=== PATIENT | male | born 1950 | race Caucasian/White ===

== ENCOUNTER 2023-12-09 10:10 | Emergency (ER) | payer MEDICARE, SELFPAY ==
[2023-12-09 10:29] VITALS: BP 127/100
--- NOTE | 2023-12-09 10:54 | ED.SKININJ ---
HPI-Injury
<Tristian Ellis PA-C - Last Filed: 12/09/23 12:47>
General
Chief Complaint: Skin Problem
Source: patient
Exam Limitations: none
Time Seen by Provider: 12/09/23 10:36
Travel History
Have you had any contact with someone who has COVID-19?: No
Do you have any symptoms of coronavirus? Fever > 100 degrees, chills, cough, shortness of breath, sore throat, loss of taste or smell, muscle aches, or headache?: No
History of Present Illness-Injury
Initial Injury comments:
73-year-old male with history of hyperlipidemia presents with over a months worth of an itchy rash of the arms trunk and legs. He was thought initially to have a dermatitis. He was started on triamcinolone cream by the workers compensation adjuster. Since then
the rash has changed. It is persistent. He now notes increased redness swelling and pain to the right forearm. No fever. He was seen by an chief hydroelectric station operator 3 days ago and was placed on mupirocin and Bactrim. He notes no relief with this. He now notes
lesions that are continuing to get worse. No new exposures otherwise. He has not slept anywhere different. No one around him has a rash similar to this
Past History
<Tristian Ellis PA-C - Last Filed: 12/09/23 12:47>
Past History
ED Past Medical History: Hypercholesterolemia
ED Past Surgical History: Appendectomy, Orthopedic (Carpal tunnel release) and Other (Deviated septum)
Social History
Tobacco: Non-smoker
Alcohol: Occasional
Personal:
Living: with family
Employment: Employed
Family History
Family History: Other (Mother with diverticulitis, father with coronary disease and stents and macular degeneration)
Phy Exam
<Tristian Ellis PA-C - Last Filed: 12/09/23 12:47>
Physical Exam
Physical Exam:
General: Well-appearing male no acute respiratory distress
HEENT: Normocephalic atraumatic neck is supple heart: Regular rate and rhythm no murmurs
Lungs: Clear no wheeze or rales
Skin: Rash noted on the arms and legs. This is a pustular rash on the arms that is pruritic in nature. The right forearm dorsally has multiple pustules that are surrounded by erythema and induration. The erythema spreads to about the wrist. This
is tender. No fluctuance.
Extremities: No cyanosis or edema.
Course
<Tristian Ellis PA-C - Last Filed: 12/09/23 12:47>
Orders/Labs/Results
Orders:
Orders
12/09/23 10:54
Complete Blood Count/With Diff Urgent
Comprehensive Metabolic Panel Urgent
PTT Urgent
Prothrombin Time Urgent
12/09/23 11:17
Ipratropium/Albuterol Sulfate [Duoneb] 3 ml INH R NOW ONE
Ipratropium/Albuterol Sulfate [Duoneb] 3 ml INH R NOW ONE
MethylPREDNISolone PF [Solu-Medrol Pf] 60 mg IV NOW STA
12/09/23 11:22
Lactic Acid Q4H
Comment: CANCEL 2nd LACTIC ACID IF 1st LACTIC ACID IS LESS THAN 2
Blood Culture Q30M
RENNY Source: Blood/Venous
Specimen Description:
12/09/23 12:13
Blood Culture Q30M
RENNY Source: Blood/Venous
Specimen Description:
12/09/23 15:15
Lactic Acid Q4H
Comment: CANCEL 2nd LACTIC ACID IF 1st LACTIC ACID IS LESS THAN 2
Abnormal Lab Results
12/09/23
10:54
RBC 4.63 L 10^6/uL
(4.70-6.10)
Absolute Neuts (auto) 6.9 H 10^3/uL
(1.4-6.5)
Absolute Monos (auto) 0.7 H 10^3/uL
(0.1-0.6)
Neutrophils % 75.6 H %
(42.2-75.2)
Lymphocytes % 14.9 L %
(20.5-51.1)
Glucose 100 H mg/dl
(70-99)
12/09/23 10:54
12/09/23 10:54
Vital Signs
Initial and Last Documented VS:
Initial Vital Signs
Temp Pulse Resp BP Pulse Ox
98.1 F 75 16 127/100 98
12/09/23 10:29 12/09/23 10:29 12/09/23 10:29 12/09/23 10:29 12/09/23 10:29
Last Documented Vital Signs
Temp Pulse Resp BP Pulse Ox
98.1 F 75 16 127/100 98
12/09/23 10:29 12/09/23 10:29 12/09/23 10:29 12/09/23 10:29 12/09/23 10:29
<Amilcar Brown, - Last Filed: 12/09/23 12:30>
Orders/Labs/Results
Orders:
Orders
12/09/23 10:54
Complete Blood Count/With Diff Urgent
Comprehensive Metabolic Panel Urgent
PTT Urgent
Prothrombin Time Urgent
12/09/23 11:17
Ipratropium/Albuterol Sulfate [Duoneb] 3 ml INH R NOW ONE
Ipratropium/Albuterol Sulfate [Duoneb] 3 ml INH R NOW ONE
MethylPREDNISolone PF [Solu-Medrol Pf] 60 mg IV NOW STA
12/09/23 11:22
Lactic Acid Q4H
Comment: CANCEL 2nd LACTIC ACID IF 1st LACTIC ACID IS LESS THAN 2
Blood Culture Q30M
RENNY Source: Blood/Venous
Specimen Description:
12/09/23 12:13
Blood Culture Q30M
RENNY Source: Blood/Venous
Specimen Description:
12/09/23 15:15
Lactic Acid Q4H
Comment: CANCEL 2nd LACTIC ACID IF 1st LACTIC ACID IS LESS THAN 2
Abnormal Lab Results
12/09/23
10:54
RBC 4.63 L 10^6/uL
(4.70-6.10)
Absolute Neuts (auto) 6.9 H 10^3/uL
(1.4-6.5)
Absolute Monos (auto) 0.7 H 10^3/uL
(0.1-0.6)
Neutrophils % 75.6 H %
(42.2-75.2)
Lymphocytes % 14.9 L %
(20.5-51.1)
Glucose 100 H mg/dl
(70-99)
12/09/23 10:54
12/09/23 10:54
Vital Signs
Initial and Last Documented VS:
Initial Vital Signs
Temp Pulse Resp BP Pulse Ox
98.1 F 75 16 127/100 98
12/09/23 10:29 12/09/23 10:29 12/09/23 10:29 12/09/23 10:29 12/09/23 10:29
Last Documented Vital Signs
Temp Pulse Resp BP Pulse Ox
98.1 F 75 16 127/100 98
12/09/23 10:29 12/09/23 10:29 12/09/23 10:29 12/09/23 10:29 12/09/23 10:29
[place];Tristian Ellis PA-C - Last Filed: 12/09/23 12:47>
MDM/Problems Addressed
Differential Diagnosis Includes:
Rash on extremities and trunk. Currently appears to be cellulitic on the right forearm without underlying clinical evidence of abscess. No new medications otherwise that he could be having a drug reaction to. He has been on Bactrim however the
cellulitis is persistent and worsening. Will get labs do blood cultures and lactic. Discussed with emergency room attending who saw the patient.
<Tristian Ellis PA-C - Last Filed: 12/09/23 12:47>
*Critical Care Note
Total Time (30-74mins, 75-104mins- exclusive of procedures): Not Applicable
<Tristian Ellis PA-C - Last Filed: 12/09/23 12:47>
Update Note
Update Note:
Labs reviewed. White blood cell count is negative. Vital signs remained stable. Suspect cellulitis on right arm not improving with Bactrim. Will add Keflex. He is nontoxic and stable otherwise. We have blood cultures pending. Will start
Keflex and give strict return precautions.
ED Attending Note
<Tristian Ellis PA-C - Last Filed: 12/09/23 12:47>
-
Portions of this chart may have been created with voice recognition software.� Occasional wrong word or��sound alike� substitutions may have occurred due to the inherent limitations of voice recognition software.
<Amilcar Brown DO - Last Filed: 12/09/23 12:30>
ED Attending Note
Patient seen and examined by attending physician: Yes
I performed the substantive portion of visit, reviewed & personally made and approve the management plan that is documented in note by myself or EJ.: Yes
I performed a history and physical exam of patient and discussed management with resident, I reviewed resident's note and agree with documented findings and plan of care.: Yes
ED Attending Note:
I evaluated the patient at bedside. The patient does have a patch of erythema suggestive of cellulitis to the proximal right forearm. He did have a rash earlier which was intensely pruritic initially and states he was scratching the area
vigorously. Favor combination of local irritation with eczema with cellulitis. He is already on Bactrim. His white count is normal, afebrile, and lactic is normal. Blood cultures have been obtained. Will add Keflex.
Discharge Plan
Departure
Patient Disposition: Home (Routine Discharge)
Date of Disposition: 12/09/23
Time of Disposition: 12:45
Patient with high blood pressure during this ER visit?: No
Discharge Problem:
Cellulitis
Instructions: Cellulitis (Skin Infection), Adult (DC)
Prescriptions:
New
cephalexin 500 mg capsule
500 mg PO QID 7 Days Qty: 28 0RF
No Action
atorvastatin 80 MG tablet
80 mg PO HS
aspirin 81 MG tablet,delayed release (DR/EC)
81 mg PO HS
pramipexole 0.125 MG tablet
0.125 mg PO HS
ezetimibe 10 MG tablet
10 mg PO HS
echinacea 400 MG capsule
400 mg PO HS
mometasone-formoterol [Dulera] 1 PUFF HFA aerosol inhaler
2 puff IH R BID
guaifenesin [Mucus Relief ER] 600 MG tablet extended release 12hr
600 mg PO [id number] PRN (Reason: cough)
acetaminophen 325 MG tablet
650 mg PO Q4HPRN PRN (Reason: if temp > 101 F) 0RF
tamsulosin [Flomax] 0.4 mg capsule
0.4 mg PO DAILY Qty: 10 0RF
hydrocodone-acetaminophen 5-325 mg tablet
1 tab PO Q8H PRN (Reason: Pain) Qty: 10 0RF
ibuprofen 600 mg tablet
600 mg PO Q6H PRN (Reason: Pain) Qty: 20 0RF
Referrals:
Robel Mckee MD [Family Provider] -
Activity Restrictions/Additional Instructions:
Continue with Bactrim. Add Keflex to the regimen. This is 4 times a day. Please take this until complete. Please return here for increasing redness swelling pain fever vomiting or other concerning findings. Follow-up with your doctor otherwise
Interventions
Interventions:
*Risk Screen - Suicide Last Done: 12/09/23 10:31
*General Assessment Last Done: 12/09/23 10:31
*Neglect/Abuse Screening Last Done: 12/09/23 10:31
[2023-12-09 11:05] LABS: % Basophils 0.7 % (0-2); % Eosinophils 1.3 % (0-6); % Immature Granulocytes 0.2 % (0-0.5); % Lymphocytes 14.9 % (20.5-51.1); % Monocytes 7.3 % (1.7-9.3); % Neutrophils 75.6 % (42.2-75.2); Absolute Basophils 0.1 10^3/uL (0-0.2); Absolute Eosinophils 0.1 10^3/uL (0-0.7); Absolute Lymphocytes 1.4 10^3/uL (1.2-3.4); Absolute Monocytes 0.7 10^3/uL (0.1-0.6); Absolute Neutrophils 6.9 10^3/uL (1.4-6.5); Hematocrit 40.1 % (39.0-52.0); Mean Corp Hgb Conc. 34.9 g/dL (33.0-37.0); Mean Corpuscular Hgb 30.2 pg (27.0-31.0); Mean Corpuscular Volume 86.6 fL (80.0-94.0); Nucleated Red Blood Cells % 0 % (-); Platelet Count 162 10^3/uL (130-400); Red Blood Cell Count 4.63 10^6/uL (4.70-6.10); Red Cell Dist. Width 13.1 % (11.5-14.5); White Blood Cell Count 9.1 10^3/uL (4.8-10.8)
[2023-12-09 11:14] LABS: INR 0.99; PT 12.9 Sec (11.4-14.6)
[2023-12-09 11:15] LABS: APTT 29.3 Sec (23.4-35.0)
[2023-12-09 11:20] LABS: ALT (SGPT) 27 U/L (0-50); AST (SGOT) 32 U/L (17-59); Albumin 4.2 g/dl (3.5-5.0); Alkaline Phosphatase 111 U/L (38-126); Blood Urea Nitrogen 20 mg/dl (9-20); Calcium 8.8 mg/dl (8.4-10.2); Carbon Dioxide 26 mmol/L (22-30); Chloride 104 mmol/L (98-107); Glucose 100 mg/dl (70-99); Potassium 4.2 mmol/L (3.5-5.1); Sodium 135 mmol/L (135-145); Total Protein 7.1 g/dl (6.3-8.2); eGFR > 60.00
[2023-12-09 11:48] LABS: Lactic Acid 0.7 mmol/L (0.7-2.0)
== END 2023-12-09 13:07 | disposition home or self-care (01) ==
LOC: EMR 10:10
PROVIDERS: Physician Assistant; EMERGENCY PHYSICIAN Emergency Medicine; FAMILY PHYSICIAN Family Medicine
DX: L03.113 Cellulitis of right upper limb (principal)
CPT/HCPCS: 99283; 80053; 83605; 85025; 85610; 85730; 87040

== ENCOUNTER → 2024-06-25 11:42 | Outpatient (REF) | payer MEDICARE, SELFPAY | LOC: HWRAD 11:42 | PROVIDERS: ATTENDING PHYSICIAN Family Medicine | DX: J45.41 Moderate persistent asthma with (acute) exacerbation (principal); R05.1 Acute cough | CPT/HCPCS: 71046 ==

== ENCOUNTER 2024-10-17 10:46 | Emergency (ER) | payer MEDICARE, SELFPAY ==
[2024-10-17 11:03] VITALS: BP 114/69
[2024-10-17 11:31] LABS: % Basophils 1.1 % (0-2); % Immature Granulocytes 0.4 % (0-0.5); % Lymphocytes 24.6 % (20.5-51.1); % Neutrophils 64.9 % (42.2-75.2); Absolute Basophils 0.1 10^3/uL (0-0.2); Absolute Eosinophils 0.1 10^3/uL (0-0.7); Absolute Lymphocytes 1.3 10^3/uL (1.2-3.4); Absolute Monocytes 0.4 10^3/uL (0.1-0.6); Absolute Neutrophils 3.5 10^3/uL (1.4-6.5); Hematocrit 41.4 % (39.0-52.0); Hemoglobin 14.3 g/dL (13.0-18.0); Mean Corp Hgb Conc. 34.5 g/dL (33.0-37.0); Mean Corpuscular Hgb 30.4 pg (27.0-31.0); Mean Corpuscular Volume 88.1 fL (80.0-94.0); Mean Platelet Volume 9.4 fL (7.4-10.4); Nucleated Red Blood Cells % 0 % (-); Platelet Count 172 10^3/uL (130-400); Red Cell Dist. Width 12.7 % (11.5-14.5); White Blood Cell Count 5.4 10^3/uL (4.8-10.8)
[2024-10-17 11:47] LABS: ALT (SGPT) 32 U/L (0-50); AST (SGOT) 30 U/L (17-59); Albumin 4.1 g/dl (3.5-5.0); Alkaline Phosphatase 100 U/L (38-126); Blood Urea Nitrogen 14 mg/dl (9-20); Calcium 8.8 mg/dl (8.4-10.2); Carbon Dioxide 28 mmol/L (22-30); Chloride 103 mmol/L (98-107); Glucose 104 mg/dl (70-99); Potassium 4.4 mmol/L (3.5-5.1); Sodium 135 mmol/L (135-145); Total Bilirubin 0.5 mg/dl (0.2-1.3); Total Protein 6.7 g/dl (6.3-8.2); eGFR > 60.00
[2024-10-17 11:57] LABS: Troponin I < 0.012 ng/ml
[2024-10-17 13:29] VITALS: BP 108/71
[2024-10-17 16:08] VITALS: BP 131/72
--- NOTE | 2024-10-17 16:23 | ED.GENMED ---
History of Present Illness
General
Chief Complaint: Chest Pain
Source: patient
Exam Limitations: none
Time Seen by Provider: 10/17/24 16:16
Nursing documentation reviewed up to this point in time: agreed with
History of Present Illness
History of Present Illness:
Patient sent to ED by labor relations manager for low pulse ox at appointment today. Patient states he has had intermittent lip swelling for the past few weeks. Had his first appointment with labor relations manager today and pulse ox was documented at 92-94% RA. BP also
reported to be low at 86/48. Sent to ED for eval. He states 2-3 weeks ago her felt chest tightness but this has resolved. He states he has an appt in November with pulmonology for eval of cough which he also states has diminshed. Denies
fever/chills, recent illness. No n/v/d/ Denies any SOB or chest pain. TO ED accompanied by for eval
Past History
Past History
ED Past Medical History: Hypercholesterolemia
ED Past Surgical History: Appendectomy, Orthopedic (Carpal tunnel release) and Other (Deviated septum)
Social History
Tobacco: Non-smoker
Alcohol: Occasional
Personal:
Living: with family
Employment: Employed
Family History
Family History: Other (Mother with diverticulitis, father with coronary disease and stents and macular degeneration)
Review of Systems
Review of Systems
Allergies reviewed?: Yes
Constitutional: Reports no symptoms
EENT: Reports no symptoms
Respiratory: Reports no symptoms (Pulse ox 92-94% this AM. MIld cough)
Cardiac: Reports no symptoms
ABD/GI: Reports no symptoms
: Reports no symptoms
Musculoskeletal: Reports no symptoms
Skin: Reports no symptoms (Has had intermittent lip swelling for the past few weeks. No swelling today.)
Neurological: Reports no symptoms
Psychiatric: Reports no symptoms
Phy Exam
General Physical Exam
General Presentation: well appearing and no apparent distress
General age: appears stated age
General Skin: warm and dry
General Habitus: normal
General Mental: alert
Cardiovascular Exam
Cardiovascular Exam: regular rate/rhythm and no edema
Pulmonary Exam
Pulmonary Exam: lungs clear, no respiratory distress (Pulse ox 98% RA) and chest non tender
Cough: no cough
Musculoskeletal Exam
Musculoskeletal Exam: full ROM
Skin Exam
Skin Exam: normal color, warm/dry and no rash
Psychiatric Exam
Psychiatric Exam: normal mood/affect
Course
Orders/Labs/Results
Orders:
Orders
10/17/24 11:07
Electrocardiogram (*1) Urgent
Reason for Study: Chest Pain
10/17/24 11:08
EKG- Treatment ONCE
10/17/24 11:22
Complete Blood Count/With Diff Urgent
Comprehensive Metabolic Panel Urgent
Troponin I Urgent
10/17/24 16:23
CR Chest - 2 Views Urgent
Comment:
Reason For Exam: cough
Abnormal Lab Results
10/17/24
11:22
Glucose 104 H mg/dl
(70-99)
10/17/24 11:22
10/17/24 11:22
Vital Signs
Initial and Last Documented VS:
Initial Vital Signs
Temp Pulse Resp BP Pulse Ox
98.3 F 57 18 114/69 96
10/17/24 11:03 10/17/24 11:03 10/17/24 11:03 10/17/24 11:03 10/17/24 11:03
Last Documented Vital Signs
Temp Pulse Resp BP Pulse Ox
98.2 F 54 18 131/72 98
10/17/24 16:08 10/17/24 16:08 10/17/24 16:08 10/17/24 16:08 10/17/24 16:08
ED Attending Note
-
Portions of this chart may have been created with voice recognition software.� Occasional wrong word or��sound alike� substitutions may have occurred due to the inherent limitations of voice recognition software.
Discharge Plan
Departure
Patient Disposition: Home (Routine Discharge)
Date of Disposition: 10/17/24
Time of Disposition: 19:08
Patient with high blood pressure during this ER visit?: No
Condition: Good
Covid-19: Not Applicable
Discharge Problem:
Breathing difficulty
Instructions: Allergic reaction - ED discharge instructions
Prescriptions:
No Action
atorvastatin 80 MG tablet
80 mg PO HS
aspirin 81 MG tablet,delayed release (DR/EC)
81 mg PO HS
pramipexole 0.125 MG tablet
0.125 mg PO HS
ezetimibe 10 MG tablet
10 mg PO HS
echinacea 400 MG capsule
400 mg PO HS
mometasone-formoterol [Dulera] 1 PUFF HFA aerosol inhaler
2 puff IH R BID
guaifenesin [Mucus Relief ER] 600 MG tablet extended release 12hr
600 mg PO [id number] PRN (Reason: cough)
acetaminophen 325 MG tablet
650 mg PO Q4HPRN PRN (Reason: if temp > 101 F) 0RF
tamsulosin [Flomax] 0.4 mg capsule
0.4 mg PO DAILY Qty: 10 0RF
hydrocodone-acetaminophen 5-325 mg tablet
1 tab PO Q8H PRN (Reason: Pain) Qty: 10 0RF
ibuprofen 600 mg tablet
600 mg PO Q6H PRN (Reason: Pain) Qty: 20 0RF
cephalexin 500 mg capsule
500 mg PO QID 7 Days Qty: 28 0RF
Referrals:
Robel Mckee MD [Family Provider] -
Activity Restrictions/Additional Instructions:
Follow up with your it operations specialist in the AM. Return to the emergency department immediately for any difficulty breathing or swallowing.
Interventions
Interventions:
*Risk Screen - Suicide Last Done: 10/17/24 11:03
*General Assessment Last Done: 10/17/24 11:03
*Neglect/Abuse Screening Last Done: 10/17/24 11:03
*ED COVID-19 Vaccine History Last Done: 10/17/24 11:03
ED- Cardiac Assessment Last Done: 10/17/24 18:22
Discharge Date and Time
Print Language: [place]
== END 2024-10-17 19:13 | disposition home or self-care (01) ==
LOC: EMR 10:46
PROVIDERS: Emergency Medicine; EMERGENCY PHYSICIAN Emergency Medicine; FAMILY PHYSICIAN Family Medicine
DX: R06.02 Shortness of breath (principal)
CPT/HCPCS: 99285; 71046; 80053; 84484; 85025; 93005

== ENCOUNTER → 2025-01-22 08:12 | Outpatient (REF) | payer MEDICARE, SELFPAY | LOC: HWRCS 08:12 | PROVIDERS: ATTENDING PHYSICIAN Internal Medicine Cardiovascular Disease; FAMILY PHYSICIAN Family Medicine | DX: I25.10 Atherosclerotic heart disease of native coronary artery without angina pectoris (principal); I77.810 Thoracic aortic ectasia; E78.01 Familial hypercholesterolemia | CPT/HCPCS: 93306 ==

== ENCOUNTER → 2025-02-01 16:14 | Outpatient (REF) | payer MEDICARE, SELFPAY ==
[2025-02-01 17:35] LABS: Albumin 4.3 g/dl (3.5-5.0); Blood Urea Nitrogen 16 mg/dl (9-20); Calcium 9.1 mg/dl (8.4-10.2); Carbon Dioxide 30 mmol/L (22-30); Chloride 107 mmol/L (98-107); Glucose 84 mg/dl (70-99); Phosphorus 3.8 mg/dl (2.5-4.5); Potassium 4.7 mmol/L (3.5-5.1); Sodium 140 mmol/L (135-145); eGFR > 60.00
== END ==
LOC: REG 16:14
PROVIDERS: ATTENDING PHYSICIAN Internal Medicine Cardiovascular Disease; FAMILY PHYSICIAN Family Medicine
DX: I25.10 Atherosclerotic heart disease of native coronary artery without angina pectoris (principal); I77.810 Thoracic aortic ectasia; R00.1 Bradycardia, unspecified
CPT/HCPCS: 36415; 80069

== ENCOUNTER → 2025-02-06 07:28 | Outpatient (REF) | payer MEDICARE, SELFPAY | LOC: RAD 07:28 | PROVIDERS: ATTENDING PHYSICIAN Internal Medicine Cardiovascular Disease; FAMILY PHYSICIAN Family Medicine | DX: I77.810 Thoracic aortic ectasia (principal); R93.1 Abnormal findings on diagnostic imaging of heart and coronary circulation | CPT/HCPCS: 71275; Q9967 ==